=== PATIENT | female | born 1960 | race Caucasian/White ===

== ENCOUNTER 2025-03-25 17:53 | Emergency (ER) | payer SELFPAY ==
[2025-03-25 18:05] VITALS: BP 164/90; PULSE 58; TEMP 36.5; O2SAT 98; BMI 36.6
--- NOTE | 2025-03-25 18:14 | XR_ITS ---
The [address] [address] Patient Name: PILAR STEIN MRN: [id number] date: 1960 Sex: F Assigned Patient Location: ED.MAIN Current Patient Location: ED.MAIN Accession/Order Number: [id number] Exam Date: 03/25/2025 18:39 Report Date: 03/25/2025 18:42 At the request of: MICHEAL TARIQ NP Procedure: XR shoulder LT min 2V LEFT SHOULDER - - 3 views CLINICAL HISTORY: diffuse pain, nontraumatic COMPARISON: None FINDINGS: Left total shoulder arthroplasty. Hardware is intact. No periprosthetic lucency or hardware fracture. Question minimal lucency surrounding the superior screw at level of the glenoid. IMPRESSION: No acute bony process. Question minimal lucency surrounding the most cephalad surgical screw at level of the glenoid. No comparisons are available. Correlation with prior comparisons may beneficial to assess for stability. Impression dictated by: Baldomero Gutierres M.D. 03/25/2025 6:42 PM Dictation Location: [place] [address] Electronically authenticated by: [id number] Y Date: 03/25/2025 18:42
--- NOTE | 2025-03-25 18:16 | ED.GENADUL1 ---
HPI HPI - General Adult General Chief complaint: Extremity Injury, Upper Stated complaint: ue pain Time Seen by Provider: 03/25/25 18:07 History of Present Illness HPI narrative: The patient is a 64-year-old female who presents to the emergency department today for evaluation of concerns for left shoulder pain. She endorses she had shoulder repair 06/2025. She mentions over the past 2 to 3 days she has intermittently had sharp pain to the left shoulder. Denies any injuries. She reports today the pain became significantly worse and was not improving with applying ice. She mention she did not take any other analgesic medication for relief of this pain since onset. She denies any paresthesias, weakness, loss of movement to the affected extremity. She does endorse pain with movement. She denies any neck/back pain. No chest pain or shortness of breath. Denies any nausea or vomiting. Historically no fevers or malignancy. Related Data Home Medications ?Medication ?Instructions ?Recorded ?Confirmed amlodipine 10 mg-benazepril 20 mg 1 cap PO DAILY 03/25/25 03/25/25 capsule atorvastatin 20 mg tablet 20 mg PO DAILY 03/25/25 03/25/25 clonidine 0.2 mg/24 hr weekly 1 patch transdermal QWEEK 03/25/25 03/25/25 transdermal patch duloxetine 60 mg capsule,delayed 60 mg PO DAILY 03/25/25 03/25/25 release sprinkle (Drizalma Sprinkle) hydrochlorothiazide 25 mg tablet 25 mg PO DAILY 03/25/25 03/25/25 lisinopril 40 mg tablet 40 mg PO DAILY 03/25/25 03/25/25 meloxicam 15 mg tablet 15 mg PO DAILY 03/25/25 03/25/25 metformin 500 mg tablet 500 mg PO DAILY 03/25/25 03/25/25 metoprolol succinate 100 mg 100 mg PO DAILY 03/25/25 03/25/25 capsule sprinkle, ext. release 24 hr ([place] Sprinkle) trazodone 100 mg tablet 50 mg PO DAILY 03/25/25 03/25/25 Previous Rx's ?Medication ?Instructions ?Recorded hydrocodone 5 mg-acetaminophen 325 1 tab PO Q6H PRN pain #7 tabs 03/25/25 mg tablet Allergies Allergy/AdvReac Type Severity Reaction Status Date / Time phenobarbital Allergy Rash Verified 03/25/25 18:16 Opioid HPI Opioid Management Most Recent Opioid Data: Last Pain Scale 3 Today, 18:51 Last MAR Pain Assessment Today, 18:51 Review of Systems ROS Status of ROS 10 or more systems reviewed and unremarkable except as noted in history and below Exam Narrative Exam Narrative: Constituational: Awake/ alert, no apparent distress, well hydrated HENMT: normocephalic, external ears normal, moist oral mucous membranes and oropharynx normal Eyes: EOMI and conjunctivae normal Neck: ROM intact, nontender Chest: inspection of chest normal Respiratory: Normal respiratory effort, clear to auscultation bilaterally Cardio: regular rate and regular rhythm GI: soft to palpation and non-tender Back: nontender MSK: + Pain and point tenderness to anterior L shoulder, she will not let go of her left arm to evaluate ROM, L upper arm/elbow appears stable, gross/fine motor movement intact to all digits of L hand, +NVI Skin: no rashes or petechiae Neuro: no focal deficits Psych: mental status grossly normal Constitutional Vital Signs, click to edit/add: Last Vital Signs Temp 97.7 F 03/25/25 18:05 Pulse 58 L 03/25/25 18:05 Resp 22 H 03/25/25 18:05 BP 164/90 H 03/25/25 18:05 Pulse Ox 98 03/25/25 18:05 O2 Del Method Room Air 03/25/25 18:05 Course Vital Signs Vital signs: Vital Signs Temperature 97.7 F 03/25/25 18:05 Pulse Rate 58 L 03/25/25 18:05 Respiratory Rate 22 H 03/25/25 18:05 Blood Pressure 164/90 H 03/25/25 18:05 Pulse Oximetry 98 03/25/25 18:05 Oxygen Delivery Method Room Air 03/25/25 18:05 Temperature 97.7 F 03/25/25 18:05 Pulse Rate 58 L 03/25/25 18:05 Respiratory Rate 22 H 03/25/25 18:05 Blood Pressure 164/90 H 03/25/25 18:05 Pulse Oximetry 98 03/25/25 18:05 Oxygen Delivery Method Room Air 03/25/25 18:05 Medical Decision Making [facility] Narrative Medical decision making narrative: Patient is a well-appearing 64-year-old female who presented to the emergency department today for evaluation concerns for acute onset of left shoulder pain with history of left shoulder repair in [place] 06/2025. Initial examination without any concerning neurovascular motor findings on exam. She does seem to be in some significant pain and she is guarding her left shoulder and refusing to move it due to pain. She did receive supportive measures of [place] and on reevaluation she reports an overall improvement in pain. ROM is intact and she remains neurovascularly intact. X-ray imaging does have some question of lucency around the surgical screw. Discussed this with the patient including recommendations for supportive care. Discussed consideration for CT imaging for further evaluation of her shoulder pain however she reports following the [place] her pain is overall resolved. She prefers to follow-up with orthopedics outpatient for reevaluation of this pain and imaging findings from the ER today. Will discharge home with [place] for severe pain. Referral placed for orthopedics for follow-up. She does she was provided a sling for her left arm for comfort. Discussed signs and symptoms of any worsening condition and when to consider reevaluation by the emergency department. Patient verbalized an understanding of this and is agreeable with the plan to be discharged home. Medical Records Medical records reviewed: Yes I reviewed the patient's medical records Imaging Data XR left shoulder: Attestation: I have reviewed the pertinent imaging results. Radiologist's impression: No acute bony process. Question minimal lucency surrounding the most cephalad surgical screw at level of the glenoid. No comparisons are available. Correlation with prior comparisons may beneficial to assess for stability. Discharge Plan Discharge Chief Complaint: Extremity Injury, Upper Clinical Impression: Acute shoulder pain Patient Disposition: Home, Self-Care Prescriptions / Home Meds: New hydrocodone-acetaminophen 5-325 mg tablet 1 tab PO Q6H PRN (Reason: pain) Qty: 7 0RF No Action Drizalma Sprinkle 60 mg capsule, delayed rel sprinkle 60 mg PO DAILY lisinopril 40 mg tablet 40 mg PO DAILY meloxicam 15 mg tablet 15 mg PO DAILY trazodone 100 mg tablet 50 mg PO DAILY clonidine 0.2 mg/24 hr patch weekly 1 patch transdermal QWEEK [place] Sprinkle 100 mg capsule,sprinkle,ER 24hr 100 mg PO DAILY amlodipine-benazepril 10-20 mg capsule 1 cap PO DAILY metformin 500 mg tablet 500 mg PO DAILY hydrochlorothiazide 25 mg tablet 25 mg PO DAILY atorvastatin 20 mg tablet 20 mg PO DAILY Print Language: Palestinian Instructions: Arthralgia (ED) Additional Instructions: Rest, ice, may take Tylenol and ibuprofen for any pain. May take [place] as needed for severe pain. Wear arm sling for comfort. Follow-up with orthopedics for reevaluation as discussed. Referrals: Physician,Non-Staff, [Primary Care Provider] - 1 week Jose Bach MD [Physician, Orthopedics] - 1 week
[2025-03-25] MEDS: HYDROCODONE/ACET 5-325 MG TABLET 1 TAB PO (18:51)
--- NOTE | 2025-03-25 19:56 | PC.NURSE ---
i gave this patient verbal and written discharge orders along with 1 Rx, and this patient voices yes to understanding these. at time of discharge this patient voices no concerns, needs and shows no signs of distress
== END 2025-03-25 19:55 | disposition home or self-care (01) ==
PROVIDERS: Emergency Provider Emergency Medicine; Family Provider Family Medicine
DX: M25.512 Pain in left shoulder (principal); Z96.612 Presence of left artificial shoulder joint
CPT/HCPCS: 73030; 99283